=== PATIENT | female | born 1975 | race Caucasian/White ===

== ENCOUNTER 2017-05-13 00:30 | Emergency (ER) | payer MEDICAID ==
--- NOTE | 2017-05-13 01:12 | ED Physician Chart ---
Chief Complaint/HPI - Patient Information Date Seen:: 05/13/17 Time Seen:: 12:05 Chief Complaint:: facial laceration History of Present Illness:: At about midnight a computed tablet fell striking patient's right temporal area. No loss of consciousness. No neck pain. Patient feels nauseated. Allergies:: Allergies Allergy/AdvReac Type Severity Reaction Status Date / Time Sulfa (Sulfonamide Allergy Verified 05/13/17 00:41 Antibiotics) levothyroxine sodium AdvReac Verified 05/13/17 00:41 Vitals:: Vital Signs - 8 hr 05/13/17 00:35 Temp 98.7 F HR 75 RR 18 BP 109/71 O2 Sat % 99 Historian:: Patient Review:: Nurse's Note Reviewed Review of Systems - Review of Systems General/Constitutional: No fever, No chills Skin: Skin lesions Head: No headache Eyes: No loss of vision ENT: No earache Neck: No neck pain Cardio Vascular: No chest pain, No palpitations Pulmonary: No SOB GI: Nausea G/U: No dysuria, No hematuria Musculoskeletal: No bone or joint pain, No muscle pain Endocrine: No polyuria, No polydipsia Psychiatric: No prior psych history, No depression, No anxiety Hematopoietic: No bruising Allergic/Immuno: No urticaria Neurological: No syncope Past Medical History - Past Medical History Past Medical History: Thyroid disorder (hyperthyroidism; irritable bowel syndrome; ovarian cysts) Family History: Diabetes Melitus, HTN Social History: Non Smoker, No Alcohol Surgical History: Psychiatricy History: None Family Medical History - Family Member Son History Unknown: Yes Ethnicity: Unknown Living Status: Still Living Physical Exam - Physical Examination General/Constitutional: Well-developed, well-nourished, Alert, No distress Head: Atraumatic Eyes: Lids, conjuctiva normal, PERRL Other Skin comments:: 5 mm laceration with 2 cm of surrounding swelling about 1 1/2 cm lateral to and 3 mm superior to the lateral end right eyebrow ENMT: External ears, nose nl Neck: No nuchal rigidity Respiratory: Nl effort/Exclusion Cardio Vascular: RRR GI: No tenderness/rebounding/guarding, No hernia : No CVA tenderness Extremities: No tenderness or effusion Neuro/Psych: Alert/oriented, Judgement/insight normal Misc: Normal back Assessment Laceration Type:: Simple Wound Length: 0.5 cm Prep/Irrigation:: Skin cleanse With Betadine solution; 2% Xylocaine with epinephrine used for local anesthesia; laceration irrigated with normal saline; 6-0 Prolene 2 simple interrupted sutures used to close the laceration ED Septic Shock - . Is Septic Shock (SBP<90, OR Lactate>4 mmol\L) present?: No - <6hrs of presentation: Vital Signs: Vital Signs - 8 hr 05/13/ 00:35 Temp 98.7 F HR 75 RR 18 BP 109/71 O2 Sat % 99 Reassessment (Disposition) - Reassessment Reassessment Condition:: Improved - Diagnosis Diagnosis:: 5 mm laceration right roman catholic - Aftercare/Follow up Instructions Aftercare/Follow-Up Instructions:: Refer to Discharge Instructions - Patient Disposition Discharge/Transfer:: Home Condition at Disposition:: Stable, Improved ED Discharge Plan - Patient Disposition Instructions: Facial Laceration Forms: Work Release Form
== END 2017-05-13 01:15 | disposition home or self-care (01) ==
LOC: ER 00:30
DX: S01.81XA Laceration without foreign body of other part of head, initial encounter (principal); E07.9 Disorder of thyroid, unspecified; Z88.2 Allergy status to sulfonamides; Z88.8 Allergy status to other drugs, medicaments and biological substances; W19.XXXA Unspecified fall, initial encounter; Y93.89 Activity, other specified; Y92.89 Other specified places as the place of occurrence of the external cause; Y99.8 Other external cause status
CPT/HCPCS: 12011; X6444; Z7502; Z7610